=== PATIENT | male | born 1930 | race Caucasian/White ===

== ENCOUNTER 2016-09-07 17:39 | Emergency (ER) | payer MEDICARE, BC, OTHER ==
[~2016-09-07] VITALS: Ht 177.8 cm; Wt 68.0 kg
[~2016-09-07 17:39] MED LIST: /TAMS4CA OR; /WARF25TA OR; FISH1000 PO; LIPI10TA PO; MAVI4TAB PO; TOPR25TA PO; TYLE325T5 PO
[2016-09-07 18:07] VITALS: BP 187/100
--- NOTE | 2016-09-07 19:00 | REPUSA ---
CT of the head Clinical history: injury. Protocol: Multiple axial CT images obtained with 5 mm slice thickness were obtained through the head without administration of contrast. Findings: The ventricles and sulci are symmetric but prominent in size bilaterally. There are periven tricular areas of low attenuation throughout the deep white matter. There is no evidence of acute hem orrhage or infarct. There is no midline shift, mass effect, or extra-axial fluid collection. The osse ous structures are unremarkable. The visualized paranasal sinuses and mastoid air cells are clear. Impression: No acute hemorrhage or infarct. Findings are consistent with age-related atrophy and [employer] jerica small vessel ischemic disease.
== END 2016-09-07 20:37 | disposition home or self-care (01) ==
LOC: M ED 20:34
DX: S01.81XA Laceration without foreign body of other part of head, initial encounter (principal); S01.21XA Laceration without foreign body of nose, initial encounter; W01.0XXA Fall on same level from slipping, tripping and stumbling without subsequent striking against object, initial encounter; Y92.828 Other wilderness area as the place of occurrence of the external cause; Y93.89 Activity, other specified; Y99.8 Other external cause status; Z95.0 Presence of cardiac pacemaker; Z79.899 Other long term (current) drug therapy; Z79.01 Long term (current) use of anticoagulants

== ENCOUNTER → 2017-07-08 | Outpatient (CLI) | payer MEDICARE, BC, OTHER ==
[2017-07-08 09:46] LABS: BASO # 0.1 10^3/uL (0.0-0.2); BASO % 0.6 % (0.0-1.0); EOS # 0.2 10^3/uL (0.0-0.50); HEMATOCRIT 40.5 % (42.0-52.0); HEMOGLOBIN 13.2 g/dl (14.0-18.0); IMMATURE GRANULOCYTE % 0.2 % (0-0); LYMPH % 11.8 % (24.0-44.0); MEAN CORPUSCULAR HEMOGLOBIN 31.3 pg (27.0-33.0); MEAN CORPUSCULAR HGB CONC 32.6 g/dl (32.0-36.5); MONO # 0.7 10^3/uL (0.0-0.8); MONO % 8.9 % (0.0-5.0); NEUTROPHILS # 6.1 10^3/uL (1.8-7.7); NEUTROPHILS % 75.5 % (36.0-66.0); PLATELET COUNT, AUTOMATED 144 10^3/uL (150-450); RED BLOOD COUNT 4.22 10^6/uL (4.30-6.10); RED CELL DISTRIBUTION WIDTH 13.4 % (11.5-14.5); WHITE BLOOD COUNT 8.1 10^3/uL (4.0-10.0)
== END ==
LOC: M LAB 09:18
DX: D69.6 Thrombocytopenia, unspecified (principal)
CPT/HCPCS: 85025

== ENCOUNTER → 2017-07-09 | Outpatient (CLI) | payer MEDICARE, BC, OTHER ==
[2017-07-09 11:40] LABS: INR 1.08; PROTHROMBIN TIME 14.2 SECONDS (12.4-14.5)
== END ==
LOC: M LAB 10:57
DX: Z79.01 Long term (current) use of anticoagulants (principal); I48.3 Typical atrial flutter
CPT/HCPCS: 85610

== ENCOUNTER → 2017-07-22 | Outpatient (CLI) | payer MEDICARE, BC, OTHER ==
[2017-07-22 10:49] LABS: BASO # 0.1 10^3/uL (0.0-0.2); BASO % 0.7 % (0.0-1.0); EOS # 0.2 10^3/uL (0.0-0.50); EOS % 2.7 % (0.0-3.0); HEMATOCRIT 42.3 % (42.0-52.0); HEMOGLOBIN 13.9 g/dl (14.0-18.0); IMMATURE GRANULOCYTE % 0.3 % (0-0); LYMPH # 0.9 10^3/uL (1.5-4.5); LYMPH % 12.7 % (24.0-44.0); MEAN CORPUSCULAR HEMOGLOBIN 31.4 pg (27.0-33.0); MEAN CORPUSCULAR HGB CONC 32.9 g/dl (32.0-36.5); MEAN CORPUSCULAR VOLUME 95.5 fl (80.0-96.0); MONO # 0.7 10^3/uL (0.0-0.8); MONO % 9.8 % (0.0-5.0); NEUTROPHILS # 5.5 10^3/uL (1.8-7.7); NEUTROPHILS % 73.8 % (36.0-66.0); RED BLOOD COUNT 4.43 10^6/uL (4.30-6.10); RED CELL DISTRIBUTION WIDTH 13.3 % (11.5-14.5); WHITE BLOOD COUNT 7.4 10^3/uL (4.0-10.0)
[2017-07-22 10:55] LABS: PROTHROMBIN TIME 18.5 SECONDS (12.4-14.5)
[2017-07-22 11:09] LABS: PLATELET COUNT, AUTOMATED 139 10^3/uL (150-450); POS COUNT POS FLAG
== END ==
LOC: M LAB 10:07
DX: Z79.01 Long term (current) use of anticoagulants (principal); I48.3 Typical atrial flutter
CPT/HCPCS: 85610